=== PATIENT | male | born 1935 | race Caucasian/White ===

== ENCOUNTER 2020-08-15 13:16 | Outpatient (CLI) | payer MEDICARE, OTHER | END 2020-08-15 13:17 | disposition home or self-care (01) | LOC: BICMAMMO 13:16 | PROVIDERS: ATTEND Internal Medicine Rheumatology | DX: M81.0 Age-related osteoporosis without current pathological fracture (principal) | CPT/HCPCS: 77080 ==

== ENCOUNTER 2020-11-14 00:04 | Emergency (ER) | payer MEDICARE, OTHER ==
[2020-11-14] MEDS ORDERED: Apixaban 5 MG TAB PO SCH (02:00)
== END 2020-11-14 02:23 | disposition home or self-care (01) ==
LOC: ERS 00:04
DX: I26.99 Other pulmonary embolism without acute cor pulmonale (principal); E55.9 Vitamin D deficiency, unspecified; M81.0 Age-related osteoporosis without current pathological fracture; R60.0 Localized edema; Z87.19 Personal history of other diseases of the digestive system; Z87.891 Personal history of nicotine dependence; Z79.899 Other long term (current) drug therapy
CPT/HCPCS: 99284

== ENCOUNTER 2021-05-01 19:41 | Inpatient (IN) | payer MEDICARE, OTHER ==
[2021-05-01 20:18] LABS: #Basophils 0.1 thou/uL (0.0-0.2); #Lymphocytes 2.1 thou/uL (1.20-3.40); #Monocytes 0.5 thou/uL (0.11-0.59); %Basophils 1.5 % (0.0-1.0); %Eosinophils 0.1 % (0.0-10.0); %Lymphocytes 21.3 % (21.0-51.0); %Monocytes 5.3 % (0.0-10.0); %Neutrophils 71.8 % (42.0-75.0); Hemoglobin 15.2 g/dL (14.0-18.0); Mean Corpuscular HGB CONC 33.8 g/dL (32.0-36.0); Mean Corpuscular Hemoglobin 32.7 pg (27.0-31.0); Mean Corpuscular Volume 96.8 fL (78.0-98.0); Mean Platelet Volume 6.8 fL (7.4-10.4); Platelet Count 288 thou/uL (130-400); RBC Distribution Width 13.2 % (11.5-14.5); Red Blood Cell (RBC) Count 4.65 mill/uL (4.70-6.10); White Blood Cell (WBC) Count 9.8 thou/uL (4.8-10.8)
[2021-05-01] MEDS ORDERED: Diltiazem 125 MG/25 ML ONE (20:22)
[2021-05-01] MEDS ORDERED: Dexamethasone 10 MG/ML VIAL ONE (20:25)
[2021-05-01] MEDS ORDERED: Diltiazem HCl 125 MG, Admixture Fee 1 EACH in Sodium Chloride 0.9% 100 ML IVPB SCH (20:30)
[2021-05-01 20:39] LABS: ALT (SGPT) 17 U/L (8-55); AST (SGOT) 24 U/L (5-34); Albumin 3.6 g/dL (3.4-4.8); Alkaline Phosphatase 49 U/L (40-110); Anion Gap 16 mmol/L (10-20); BUN (Urea Nitrogen) 29 mg/dL (8.4-25.7); Bilirubin, Total 0.7 mg/dL (0.2-1.2); Calc. Creatinine Clearance 0 mL/min (70-130); Calcium 9.2 mg/dL (7.8-10.44); Carbon Dioxide 26 mmol/L (23-31); Chloride 99 mmol/L (98-107); Globulin 3.4 g/dL (2.4-3.5); Glucose 165 mg/dL (83-110); Sodium 136 mmol/L (136-145)
[2021-05-01] MEDS ORDERED: Furosemide 40 MG/4 ML VIAL ONE (22:52)
[2021-05-01 23:28] LABS: Lactic Acid 3.1 mmol/L (0.5-2.2)
[2021-05-02 01:22] LABS: Troponin I 0.012 ng/mL (< 0.028)
[2021-05-02 04:28] LABS: Troponin I 0.018 ng/mL (< 0.028)
[2021-05-02] MEDS ORDERED: Ondansetron PF 4 MG/2 ML Vial IVP PRN (08:03)
[2021-05-02] MEDS ORDERED: Acetaminophen 325 MG TAB PO PRN (08:03)
[2021-05-02] MEDS ORDERED: Diltiazem 125 MG in Sodium Chloride 0.9% 100 ML IVPB SCH (08:15)
[2021-05-02] MEDS ORDERED: Furosemide 20 MG/2 ML VIAL SLOW IVP SCH (08:30)
[2021-05-02] MEDS ORDERED: Apixaban 5 MG TAB PO SCH (09:00)
[2021-05-02] MEDS ORDERED: Furosemide 40 MG/4 ML VIAL ONE ×2 (10:34→14:13)
[2021-05-02] MEDS ORDERED: Ascorbic Acid 500 mg Chewable Tablet ONE (10:34)
[2021-05-02] MEDS ORDERED: Zinc Sulfate 220 MG CAP ONE (10:34)
[2021-05-02] MEDS: Zinc Sulfate 220 MG CAP PO SCH (10:45)
[2021-05-02] MEDS: Ascorbic Acid 500 mg Chewable Tablet PO SCH (10:45)
[2021-05-02] MEDS: Furosemide 40 MG/4 ML VIAL SLOW IVP SCH (14:22)
[2021-05-02] MEDS ORDERED: Benzonatate 100 MG CAP PO PRN (15:46)
[2021-05-02] MEDS ORDERED: predniSONE 5 MG TAB PO SCH (16:00)
[2021-05-02] MEDS ORDERED: Non-Formulary Item 1 EACH (Risedronate Sodium [Actonel] 150 MG Tablet) PO SCH (16:00)
[2021-05-02] MEDS: Latanoprost 0.005% Ophth Soln 2.5 ml Bottle EA EYE SCH (17:37)
[2021-05-02] MEDS: Timolol 0.5% Ophth Soln 5 ml Bottle EA EYE SCH (17:37)
[2021-05-03] MEDS: Furosemide 40 MG/4 ML VIAL SLOW IVP SCH ×2 (05:53→14:44)
[2021-05-03 06:15] LABS: #Lymphocytes 1.7 thou/uL (1.20-3.40); #Monocytes 0.8 thou/uL (0.11-0.59); #Neutrophils 10.1 thou/uL (1.40-6.50); %Eosinophils 0.1 % (0.0-10.0); %Lymphocytes 13.3 % (21.0-51.0); %Monocytes 6.4 % (0.0-10.0); %Neutrophils 80.3 % (42.0-75.0); Hemoglobin 13.7 g/dL (14.0-18.0); Mean Corpuscular HGB CONC 33.2 g/dL (32.0-36.0); Mean Corpuscular Hemoglobin 32.1 pg (27.0-31.0); Mean Corpuscular Volume 96.9 fL (78.0-98.0); Mean Platelet Volume 6.9 fL (7.4-10.4); Platelet Count 268 thou/uL (130-400); RBC Distribution Width 13.2 % (11.5-14.5); Red Blood Cell (RBC) Count 4.25 mill/uL (4.70-6.10); White Blood Cell (WBC) Count 12.6 thou/uL (4.8-10.8)
[2021-05-03 06:35] LABS: Anion Gap 13 mmol/L (10-20); BUN (Urea Nitrogen) 28 mg/dL (8.4-25.7); Calc. Creatinine Clearance 54 mL/min (70-130); Calcium 8.7 mg/dL (7.8-10.44); Carbon Dioxide 30 mmol/L (23-31); Chloride 97 mmol/L (98-107); Glucose 139 mg/dL (83-110); Potassium 3.4 mmol/L (3.5-5.1); Sodium 137 mmol/L (136-145)
[2021-05-03] MEDS: predniSONE 5 MG TAB PO SCH (09:19)
[2021-05-03] MEDS: Ascorbic Acid 500 mg Chewable Tablet PO SCH (09:19)
[2021-05-03] MEDS: Zinc Sulfate 220 MG CAP PO SCH (09:19)
[2021-05-03] MEDS: Latanoprost 0.005% Ophth Soln 2.5 ml Bottle EA EYE SCH (09:44)
[2021-05-03] MEDS: Timolol 0.5% Ophth Soln 5 ml Bottle EA EYE SCH (09:44)
[2021-05-03] MEDS ORDERED: Potassium Chloride 20 MEQ TAB PO SCH (10:15)
[2021-05-03] MEDS ORDERED: Diltiazem 125 MG in Sodium Chloride 0.9% 100 ML IVPB SCH (14:43)
[2021-05-03] MEDS: Apixaban 5 MG TAB PO SCH (20:30)
[2021-05-04] MEDS: Furosemide 40 MG/4 ML VIAL SLOW IVP SCH (06:04)
[2021-05-04 07:11] LABS: Anion Gap 15 mmol/L (10-20); BUN (Urea Nitrogen) 30 mg/dL (8.4-25.7); Calc. Creatinine Clearance 45 mL/min (70-130); Calcium 8.6 mg/dL (7.8-10.44); Carbon Dioxide 33 mmol/L (23-31); Chloride 93 mmol/L (98-107); Glucose 111 mg/dL (83-110); Potassium 3.4 mmol/L (3.5-5.1); Sodium 138 mmol/L (136-145)
[2021-05-04] MEDS: predniSONE 5 MG TAB PO SCH (07:58)
[2021-05-04] MEDS: Apixaban 5 MG TAB PO SCH ×2 (08:00→20:11)
[2021-05-04] MEDS: Zinc Sulfate 220 MG CAP PO SCH (08:00)
[2021-05-04] MEDS: Ascorbic Acid 500 mg Chewable Tablet PO SCH (08:00)
[2021-05-04] MEDS: Potassium Chloride 10 MEQ TAB PO SCH (08:01)
[2021-05-04] MEDS: Latanoprost 0.005% Ophth Soln 2.5 ml Bottle EA EYE SCH (08:01)
[2021-05-04] MEDS: Timolol 0.5% Ophth Soln 5 ml Bottle EA EYE SCH (08:01)
[2021-05-04] MEDS ORDERED: Spironolactone 25 MG TAB PO SCH (09:00)
[2021-05-04] MEDS ORDERED: Melatonin 3 MG TAB PO PRN (23:21)
[2021-05-05 03:56] VITALS: BMI 21.5
[2021-05-05 06:35] LABS: Anion Gap 16 mmol/L (10-20); BUN (Urea Nitrogen) 37 mg/dL (8.4-25.7); Calc. Creatinine Clearance 39 mL/min (70-130); Calcium 8.8 mg/dL (7.8-10.44); Carbon Dioxide 32 mmol/L (23-31); Chloride 91 mmol/L (98-107); Glucose 163 mg/dL (83-110); Potassium 3.2 mmol/L (3.5-5.1); Sodium 136 mmol/L (136-145)
[2021-05-05] MEDS ORDERED: Potassium Chloride 20 MEQ TAB PO SCH (08:30)
[2021-05-05] MEDS ORDERED: Sodium Chloride 0.9% 500 ML IVPB SCH (09:30)
[2021-05-05] MEDS: Digoxin 0.5 MG/2 ML AMP SLOW IVP SCH ×3 (09:40→14:02)
[2021-05-05] MEDS: predniSONE 5 MG TAB PO SCH (09:43)
[2021-05-05] MEDS: Ascorbic Acid 500 mg Chewable Tablet PO SCH (09:43)
[2021-05-05] MEDS: Zinc Sulfate 220 MG CAP PO SCH (09:44)
[2021-05-05] MEDS: Potassium Chloride 10 MEQ TAB PO SCH (09:44)
[2021-05-05] MEDS: Spironolactone 25 MG TAB PO SCH (09:44)
[2021-05-05] MEDS: Latanoprost 0.005% Ophth Soln 2.5 ml Bottle EA EYE SCH (09:45)
[2021-05-05] MEDS: Apixaban 5 MG TAB PO SCH ×2 (09:45→20:59)
[2021-05-05] MEDS: Timolol 0.5% Ophth Soln 5 ml Bottle EA EYE SCH (09:45)
[2021-05-06 06:05] LABS: Anion Gap 15 mmol/L (10-20); BUN (Urea Nitrogen) 29 mg/dL (8.4-25.7); Calc. Creatinine Clearance 52 mL/min (70-130); Calcium 8.8 mg/dL (7.8-10.44); Carbon Dioxide 30 mmol/L (23-31); Chloride 95 mmol/L (98-107); Glucose 112 mg/dL (83-110); Potassium 3.8 mmol/L (3.5-5.1); Sodium 136 mmol/L (136-145)
[2021-05-06] MEDS ORDERED: Apixaban 5 MG TAB PO SCH (09:00)
[2021-05-06] MEDS: Apixaban 5 MG TAB PO SCH ×2 (09:32→20:31)
[2021-05-06] MEDS: Spironolactone 25 MG TAB PO SCH (09:32)
[2021-05-06] MEDS: Potassium Chloride 10 MEQ TAB PO SCH (09:32)
[2021-05-06] MEDS: Ascorbic Acid 500 mg Chewable Tablet PO SCH (09:32)
[2021-05-06] MEDS: Digoxin 0.25 MG TAB PO SCH (09:32)
[2021-05-06] MEDS: Zinc Sulfate 220 MG CAP PO SCH (09:33)
[2021-05-06] MEDS: predniSONE 5 MG TAB PO SCH (09:33)
[2021-05-06] MEDS: Latanoprost 0.005% Ophth Soln 2.5 ml Bottle EA EYE SCH (09:52)
[2021-05-06] MEDS: Timolol 0.5% Ophth Soln 5 ml Bottle EA EYE SCH (09:53)
[2021-05-07 08:13] VITALS: TEMP 97.6
[2021-05-07] MEDS: Apixaban 5 MG TAB PO SCH (08:32)
[2021-05-07] MEDS: Zinc Sulfate 220 MG CAP PO SCH (08:32)
[2021-05-07] MEDS: Ascorbic Acid 500 mg Chewable Tablet PO SCH (08:32)
[2021-05-07] MEDS: Digoxin 0.25 MG TAB PO SCH (08:34)
[2021-05-07] MEDS: predniSONE 5 MG TAB PO SCH (08:34)
[2021-05-07] MEDS: Potassium Chloride 10 MEQ TAB PO SCH (08:34)
[2021-05-07] MEDS: Spironolactone 25 MG TAB PO SCH (08:34)
[2021-05-07] MEDS: Latanoprost 0.005% Ophth Soln 2.5 ml Bottle EA EYE SCH (08:36)
[2021-05-07 08:58] VITALS: BP 136/78
[2021-05-07] MEDS: Timolol 0.5% Ophth Soln 5 ml Bottle EA EYE SCH (08:58)
[2021-05-07] MEDS ORDERED: Furosemide 20 MG TAB PO SCH (10:15)
[2021-05-08] MEDS ORDERED: Furosemide 20 MG TAB PO SCH (09:00)
== END 2021-05-07 12:05 | disposition home or self-care (01) | DRG 177 ==
LOC: ERS 19:41 → ERHOLD 21:25 → 2SW 05-02 14:28
PROVIDERS: ADMIT Student in an Organized Health Care Education/Training Program; ATTEND Family Medicine
PROC: 3E0333Z Introduction of Anti-inflammatory into Peripheral Vein, Percutaneous Approach (ICD-10-PCS; principal; 2021-05-01)
PROC: 8E0ZXY6 Isolation (ICD-10-PCS; 2021-05-01)
DX: U07.1 COVID-19 (principal); J12.82 Pneumonia due to coronavirus disease 2019; I50.23 Acute on chronic systolic (congestive) heart failure; I42.9 Cardiomyopathy, unspecified; I48.21 Permanent atrial fibrillation; I25.10 Atherosclerotic heart disease of native coronary artery without angina pectoris; M31.6 Other giant cell arteritis; I25.5 Ischemic cardiomyopathy; Z79.01 Long term (current) use of anticoagulants; Z79.899 Other long term (current) drug therapy; Z79.51 Long term (current) use of inhaled steroids; Z87.891 Personal history of nicotine dependence; Z79.52 Long term (current) use of systemic steroids; Z86.718 Personal history of other venous thrombosis and embolism; Z86.711 Personal history of pulmonary embolism; I95.1 Orthostatic hypotension
CPT/HCPCS: 36415; 71045; 80048; 82728; 83605; 83880; 84484; 85025; 85379; 85652; 86140; 87040; 93005; 93306; 93798; 94760; 96374; 96375; J1100; J1160; J1940; J3490; J7030; J7512

== ENCOUNTER 2021-11-11 15:26 | Outpatient (CLI) | payer MEDICARE, OTHER ==
[2021-11-11 16:03] LABS: Hemoglobin 13.8 g/dL (13.5-17.5); Mean Corpuscular HGB CONC 32.4 g/dL (32.0-36.0); Mean Corpuscular Hemoglobin 30.5 pg (27.0-33.0); Mean Platelet Volume 9.4 fl (7.4-10.4); Platelet Count 259 10x3/uL (150-450); RBC Distribution Width 13.2 % (11.5-14.5); Red Blood Cell (RBC) Count 4.53 10x6/uL (4.32-5.72); White Blood Cell (WBC) Count 10.2 10x3/uL (3.5-10.5)
[2021-11-11 16:30] LABS: Anion Gap 12 mmol/L (10-20); BUN (Urea Nitrogen) 24 mg/dL (8.4-25.7); Calc. Creatinine Clearance 0 mL/min (70-130); Calcium 9.4 mg/dL (7.8-10.44); Carbon Dioxide 27 mmol/L (23-31); Chloride 103 mmol/L (98-107); Estimated GFR 53; Glucose 123 mg/dL (83-110); INR-International Normal Ratio 1.1; Prothrombin Time 11.9 sec (9.5-12.1); Sodium 137 mmol/L (136-145)
== END 2021-11-11 15:27 | disposition home or self-care (01) ==
LOC: LABBT 15:26
PROVIDERS: ATTEND Internal Medicine Cardiovascular Disease
DX: Z01.818 Encounter for other preprocedural examination (principal); I48.19 Other persistent atrial fibrillation; I11.0 Hypertensive heart disease with heart failure; I50.9 Heart failure, unspecified; Z79.01 Long term (current) use of anticoagulants; Z20.822 Contact with and (suspected) exposure to COVID-19
CPT/HCPCS: 80048; 85027; 85610; 85730; 87811; 93005; 93010

== ENCOUNTER → 2021-11-16 | Day surgery (SDC) | payer MEDICARE, OTHER ==
[2021-11-13 10:54] VITALS: BMI 26.2
[~2021-11-16] MED LIST: Glycopyrrolate 0.2 MG/ML 5 ML SYRINGE ONE; Heparin 10,000 UNITS/ 10 ML VIAL ONE; Heparin 25,000 units/D5W 500 ML ONE; Isoproterenol 0.2 MG/1 ML AMP ONE; Lidocaine 1% PF 5 ML VIAL ONE; Ondansetron PF 4 MG/2 ML Vial ONE; PROPOFOL 200 MG/20 ML VIAL ONE; Phenylephrine 10 MG/ML VIAL ONE; Protamine Sulfate 50 MG/5 ML VIAL ONE; Rocuronium Bromide 10 MG/ML (10ML VIAL) ONE; SUGAMMADEX SODIUM 200 MG/2 ML VIAL ONE; fentaNYL Citrate/PF 100 MCG/2 ML SYRINGE ONE
== END | disposition home or self-care (01) ==
LOC: SDC 05:44
PROVIDERS: ATTEND Internal Medicine Cardiovascular Disease
PROC: B244ZZ3 Ultrasonography of Right Heart, Intravascular (ICD-10-PCS; principal; 2021-11-16)
PROC: 02583ZZ Destruction of Conduction Mechanism, Percutaneous Approach (ICD-10-PCS; 2021-11-16)
PROC: 02K83ZZ Map Conduction Mechanism, Percutaneous Approach (ICD-10-PCS; 2021-11-16)
PROC: 4A023FZ Measurement of Cardiac Rhythm, Percutaneous Approach (ICD-10-PCS; 2021-11-16)
PROC: 4A0234Z Measurement of Cardiac Electrical Activity, Percutaneous Approach (ICD-10-PCS; 2021-11-16)
DX: I48.21 Permanent atrial fibrillation (principal); I48.3 Typical atrial flutter; I48.4 Atypical atrial flutter; I47.1 Supraventricular tachycardia; I11.0 Hypertensive heart disease with heart failure; I50.22 Chronic systolic (congestive) heart failure; I42.9 Cardiomyopathy, unspecified; I08.3 Combined rheumatic disorders of mitral, aortic and tricuspid valves; M31.6 Other giant cell arteritis; E78.5 Hyperlipidemia, unspecified; Z86.16 Personal history of COVID-19; Z86.711 Personal history of pulmonary embolism; Z86.718 Personal history of other venous thrombosis and embolism; Z87.891 Personal history of nicotine dependence; Z79.01 Long term (current) use of anticoagulants; Z79.52 Long term (current) use of systemic steroids; Z79.899 Other long term (current) drug therapy; Z95.5 Presence of coronary angioplasty implant and graft
CPT/HCPCS: 85347 ×2; 93005; 93613; 93623; 93655; 93656; 93657; 93662; C1732 ×2; C1759; C1760; C1769; J1644; J2370; J2405; J2704; J2720

== ENCOUNTER 2023-07-15 16:08 | Outpatient (CLI) | payer MEDICARE, OTHER ==
[2023-07-15 17:23] LABS: #Basophils 0.04 10x3/uL (0.0-0.2); #Eosinphils 0.16 10x3/uL (0.0-0.5); #Monocytes 0.79 10x3/uL (0.0-1.1); #Neutrophils 4.05 10x3/uL (1.5-8.4); %Basophils 0.5 % (0.0-2.0); %Eosinophils 2.1 % (0.0-6.0); %Lymphocytes 32.4 % (18.0-47.0); %Monocytes 10.6 % (0.0-10.0); %Neutrophils 54.1 % (40.0-75.0); Hematocrit 40.4 % (38.8-50.0); Hemoglobin 13.5 g/dL (13.5-17.5); Mean Corpuscular HGB CONC 33.4 g/dL (32.0-36.0); Mean Corpuscular Hemoglobin 30.8 pg (27.0-33.0); Mean Corpuscular Volume 92.2 fl (81.2-95.1); Mean Platelet Volume 9.3 fl (7.4-10.4); Platelet Count 223 10x3/uL (150-450); RBC Distribution Width 14.2 % (11.5-14.5); Red Blood Cell (RBC) Count 4.38 10x6/uL (4.32-5.72); White Blood Cell (WBC) Count 7.5 10x3/uL (3.5-10.5)
[2023-07-15 17:35] LABS: Anion Gap 11 mmol/L (10-20); BUN (Urea Nitrogen) 22 mg/dL (8.4-25.7); Calc. Creatinine Clearance 0 mL/min (70-130); Calcium 8.8 mg/dL (7.8-10.44); Carbon Dioxide 26 mmol/L (23-31); Chloride 105 mmol/L (98-107); Estimated GFR 53; Glucose 89 mg/dL (83-110); Potassium 4.6 mmol/L (3.5-5.1); Sodium 137 mmol/L (136-145)
== END 2023-07-15 16:09 | disposition home or self-care (01) ==
LOC: LABBT 16:08
PROVIDERS: ATTEND Surgery
DX: Z01.818 Encounter for other preprocedural examination (principal); K43.9 Ventral hernia without obstruction or gangrene
CPT/HCPCS: 80048; 85025

== ENCOUNTER 2023-07-20 10:22 | Day surgery (SDC) | payer MEDICARE, OTHER ==
[2023-07-20] MEDS ORDERED: Bupivacaine 0.25% HCL 30 ML VIAL ONE (13:12)
[2023-07-20] MEDS ORDERED: EPINEPHrine 1 MG/ML VIAL ONE (13:12)
[2023-07-20] MEDS ORDERED: PROPOFOL 20 ML ONE (13:16)
[2023-07-20] MEDS ORDERED: Lidocaine 2% PF 5 ML VIAL ONE (13:16)
[2023-07-20] MEDS ORDERED: fentaNYL PF 100 MCG/2 ML SYRINGE ONE (13:16)
[2023-07-20] MEDS ORDERED: Sodium Chloride 0.9% 100 ML ONE (13:25)
[2023-07-20] MEDS ORDERED: CEFAZOLIN 2 GM VIAL ONE (13:25)
[2023-07-20] MEDS ORDERED: ePHEDrine Sulfate 50 MG/10 ML VIAL ONE (13:42)
[2023-07-20] MEDS ORDERED: Ondansetron PF 4 MG/2 ML Vial ONE (13:56)
== END 2023-07-20 15:50 | disposition home or self-care (01) ==
LOC: SDC 10:22
PROVIDERS: ATTEND Surgery
PROC: 0WQF0ZZ Repair Abdominal Wall, Open Approach (ICD-10-PCS; principal; 2023-07-20)
DX: K42.9 Umbilical hernia without obstruction or gangrene (principal); I11.0 Hypertensive heart disease with heart failure; I50.43 Acute on chronic combined systolic (congestive) and diastolic (congestive) heart failure; I48.0 Paroxysmal atrial fibrillation; M17.9 Osteoarthritis of knee, unspecified; I25.5 Ischemic cardiomyopathy; M10.9 Gout, unspecified; M81.0 Age-related osteoporosis without current pathological fracture; Z79.899 Other long term (current) drug therapy; Z86.16 Personal history of COVID-19; Z98.890 Other specified postprocedural states
CPT/HCPCS: 49591; C1781; J0171; J0665; J2001; J2405; J2704; J3490